=== PATIENT | female | born 1955 | race Caucasian/White ===

== ENCOUNTER 2018-02-04 09:02 | Inpatient (IN) | payer MEDICARE, OTHER ==
[~2018-02-04] VITALS: Ht 157.5 cm; Wt 52.0 kg
[~2018-02-04 09:02] MED LIST: ALBU90I INH; ALBU90OI6 INH; AMOX875 PO; Bactrim Ds Tab1 EACH PO; CLIN300; CYCL10 PO; FLUSAL1005 IH; HYDSUL200 PO; LORA1 PO; MAGIC MOUTHWASH; MULVITMINE PO; NAPR500 PO; Norco 5-325 Ta1 EACH PO; OXYACE5T PO; OXYACE7.5T PO; OXYC10ER PO; OXYC10TA19 PO; PREG25 PO; Percocet 5-3251 EACH PO; SOLI5 PO; SULTRIDS PO; TRAM50 PO; Ventolin Soln3 ML; Zovirax800 MG PO
[2018-02-04 10:43] LABS: Source, Urine Clean Catch
[2018-02-04 10:58] LABS: BASOPHILS ABSOLUTE AUTO 0.05 K/mm3 (0.00-0.23); BASOPHILS PERCENT AUTO 0 % (0-2); EOSINOPHILS ABSOLUTE AUTO 0.06 K/mm3 (0.00-0.68); EOSINOPHILS PERCENT AUTO 0 % (0-6); Hematocrit 40.7 % (33.0-51.0); Hemoglobin 13.7 g/dL (11.5-16.0); IMMATURE GRAN ABSOLUTE AUTO 0.16 K/mm3 (0.00-0.10); IMMATURE GRAN PERCENT AUTO 1 % (0-1); LYMPHOCYTES ABSOLUTE AUTO 0.85 K/mm3 (0.84-5.20); LYMPHOCYTES PERCENT AUTO 4 % (21-46); MONOCYTES ABSOLUTE AUTO 0.77 K/mm3 (0.16-1.47); MONOCYTES PERCENT AUTO 3 % (4-13); Mean Corpuscular HGB 32.3 pg (26.0-34.0); Mean Corpuscular HGB Conc 33.7 g/dL (31.5-36.5); Mean Corpuscular Volume 96 fL (80-100); Mean Platelet Volume 10.9 fL (9.1-12.4); NEUTROPHILS ABSOLUTE AUTO 21.65 K/mm3 (1.96-9.15); NEUTROPHILS PERCENT AUTO 92 % (41-73); Platelet Count 325 K/mm3 (150-400); RDW Coefficient Variation 13.6 % (11.7-14.2); RDW Standard Deviation 48.1 fL (35.1-46.3); Red Blood Cell Count 4.24 M/mm3 (3.80-5.20); White Blood Cell Count 23.54 K/mm3 (4.00-11.30)
[2018-02-04 11:06] LABS: Appearance, Urine Bloody (Clear); Bilirubin, Urine Neg (Neg); Blood, Urine 5+ (Neg); Color, Urine Red (P-Yellow); Glucose Qualitative, Urine Neg (Neg); Ketones, Urine Neg (Neg); Leukocyte Esterase, Urine 3+ (Neg); Nitrite, Urine Neg (Neg); Protein, Urine 4+ (Neg); Urobilinogen, Urine 2+ (Normal); pH, Urine 6.5 (5.0-8.0)
[2018-02-04 11:07] LABS: Bacteria Many /hpf; Red Blood Cells, Urine TNTC /hpf (0-2); Squamous Epithelial Cells Not Seen /hpf (Few); White Blood Cells, Urine TNTC /hpf (0-5)
[2018-02-04 11:19] LABS: Calcium, Blood 8.3 mg/dL (8.5-10.1); Creatinine, Blood 1.41 mg/dL (0.40-1.00); Potassium, Blood 5.2 mmol/L (3.5-5.5)
[2018-02-04] MEDS ORDERED: NAPR500 PO (12:59)
[2018-02-04] MEDS ORDERED: AMIT10 PO (13:20)
[2018-02-04 18:30] LABS: Influenza A Negative (NEGATIVE); Influenza B Negative (NEGATIVE)
[2018-02-05 04:56] LABS: Hematocrit 31.4 % (33.0-51.0); Hemoglobin 10.6 g/dL (11.5-16.0); Mean Corpuscular HGB 32.1 pg (26.0-34.0); Mean Corpuscular HGB Conc 33.8 g/dL (31.5-36.5); Mean Corpuscular Volume 95 fL (80-100); Mean Platelet Volume 9.4 fL (9.1-12.4); Platelet Count 340 K/mm3 (150-400); RDW Coefficient Variation 13.5 % (11.7-14.2); RDW Standard Deviation 47.8 fL (35.1-46.3); White Blood Cell Count 21.81 K/mm3 (4.00-11.30)
[2018-02-05 05:11] LABS: Bun/Creatinine Ratio 19.6 (12.0-20.0); Calcium, Blood 7.4 mg/dL (8.5-10.1); Creatinine, Blood 1.58 mg/dL (0.40-1.00); Potassium, Blood 3.5 mmol/L (3.5-5.5)
[2018-02-05] MEDS ORDERED: OXYC10TA19 PO (09:00)
[2018-02-05] MEDS ORDERED: BUSP10 PO (09:03)
[2018-02-05] MEDS ORDERED: GABA300 PO (09:05)
[2018-02-05] MEDS ORDERED: SOLI5 (09:06)
[2018-02-05 13:38] LABS: Vancomycin, Trough 22.8 ug/mL (5.0-10.0)
[2018-02-06 05:26] LABS: Hematocrit 34.1 % (33.0-51.0); Hemoglobin 11.2 g/dL (11.5-16.0); Mean Corpuscular HGB 32.2 pg (26.0-34.0); Mean Corpuscular HGB Conc 32.8 g/dL (31.5-36.5); Mean Platelet Volume 9.2 fL (9.1-12.4); Platelet Count 387 K/mm3 (150-400); RDW Standard Deviation 49.9 fL (35.1-46.3); Red Blood Cell Count 3.48 M/mm3 (3.80-5.20)
[2018-02-06 05:39] LABS: Albumin, Blood 1.6 g/dL (3.4-5.0); Anion Gap 9 mmol/L (6-16); Blood Urea Nitrogen 27 mg/dL (8-24); Bun/Creatinine Ratio 20.9 (12.0-20.0); CO2, Blood 23 mmol/L (21-32); Chloride, Blood 106 mmol/L (98-108); Creatinine, Blood 1.29 mg/dL (0.40-1.00); Glomerular Filtration Rate 44 (60-); Glucose, Blood 87 mg/dL (70-99); Phosphorus, Blood 3.1 mg/dL (2.5-4.9); Sodium, Blood 138 mmol/L (136-145); Vancomycin, Random 13.6 ug/mL
[2018-02-06 05:49] LABS: Mean Corpuscular Volume 98 fL (80-100)
[2018-02-07 08:15] LABS: Bun/Creatinine Ratio 20.7 (12.0-20.0); Calcium, Blood 8.2 mg/dL (8.5-10.1); Creatinine, Blood 1.11 mg/dL (0.40-1.00); Potassium, Blood 4.5 mmol/L (3.5-5.5)
[2018-02-07 08:19] LABS: Vancomycin, Trough 15.1 ug/mL (5.0-10.0)
[2018-02-07] MEDS ORDERED: CEFU500T30 PO (11:23)
[2018-02-07] MEDS ORDERED: Acidophilus La100 GM PO (11:23)
== END 2018-02-07 13:08 | disposition home or self-care (01) | DRG 872 ==
LOC: ER 09:02 → MEDS 12:34
PROVIDERS: Emergency Medicine; Internal Medicine; Pharmacist
PROC: 3E0234Z Introduction of Serum, Toxoid and Vaccine into Muscle, Percutaneous Approach (ICD-10-PCS; principal; 2018-02-04)
DX: A41.51 Sepsis due to Escherichia coli [E. coli] (principal); N39.0 Urinary tract infection, site not specified; N17.9 Acute kidney failure, unspecified; E87.1 Hypo-osmolality and hyponatremia; R65.20 Severe sepsis without septic shock; G89.29 Other chronic pain; M54.9 Dorsalgia, unspecified; K59.00 Constipation, unspecified; F32.9 Major depressive disorder, single episode, unspecified; F41.9 Anxiety disorder, unspecified; J44.9 Chronic obstructive pulmonary disease, unspecified; R31.9 Hematuria, unspecified; F17.210 Nicotine dependence, cigarettes, uncomplicated; Z86.14 Personal history of Methicillin resistant Staphylococcus aureus infection; Z88.8 Allergy status to other drugs, medicaments and biological substances; Z79.1 Long term (current) use of non-steroidal anti-inflammatories (NSAID); Z23 Encounter for immunization
CPT/HCPCS: 36415; 76770; 80048; 80069; 80202; 81001; 82330; 83735; 85025; 85027; 87086; 87186; 87804; 90686; 96365; 96366; 96375; 99284-25; J0696; J1885; J2405; J3010; J3370; J7030

== ENCOUNTER 2019-06-08 14:38 | Emergency (ER) | payer MEDICARE, OTHER ==
[~2019-06-08] VITALS: Ht 152.4 cm; Wt 50.8 kg
[~2019-06-08 14:38] MED LIST changes: +AMIT10 PO; +Acidophilus La100 GM PO; +BUSP10 PO; +CEFU500T30 PO; +GABA300 PO; +SOLI5
[2019-06-08] MEDS ORDERED: CODE30 PO (17:25)
[2019-06-08] MEDS ORDERED: Naprelan375 MG PO (17:25)
== END 2019-06-08 17:31 | disposition home or self-care (01) ==
LOC: ER 14:38
DX: M25.552 Pain in left hip (principal); M25.532 Pain in left wrist; F17.210 Nicotine dependence, cigarettes, uncomplicated; Z88.8 Allergy status to other drugs, medicaments and biological substances; Z79.899 Other long term (current) drug therapy
CPT/HCPCS: 73110; 73502; 99283-25

== ENCOUNTER 2020-04-05 18:40 | Emergency (ER) | payer MEDICARE, OTHER ==
[~2020-04-05] VITALS: Ht 154.9 cm; Wt 54.4 kg
[~2020-04-05 18:40] MED LIST changes: +CODE30 PO; +Naprelan375 MG PO
[2020-04-05] MEDS ORDERED: SALM50IP (19:02)
[2020-04-05] MEDS ORDERED: ALBU2.5V5 (19:02)
[2020-04-05] MEDS ORDERED: Percocet 5-3251 EACH PO (19:45)
== END 2020-04-05 20:38 | disposition home or self-care (01) ==
LOC: ER 18:40
DX: S52.502A Unspecified fracture of the lower end of left radius, initial encounter for closed fracture (principal); J44.9 Chronic obstructive pulmonary disease, unspecified; F17.210 Nicotine dependence, cigarettes, uncomplicated; Z88.8 Allergy status to other drugs, medicaments and biological substances; Z79.899 Other long term (current) drug therapy; W01.0XXA Fall on same level from slipping, tripping and stumbling without subsequent striking against object, initial encounter
CPT/HCPCS: 29125; 73110; 99283-25; A9270; A9270-GY

== ENCOUNTER → 2020-07-14 | Outpatient (CLI) | payer MEDICARE, OTHER ==
[~2020-07-14] MED LIST changes: +ALBU2.5V5; +SALM50IP
[2020-07-15 07:42] LABS: Candida species (DNA Probe) Negative (NEGATIVE); G. vaginalis (DNA Probe) Negative (NEGATIVE); T. vaginalis (DNA Probe) Negative (NEGATIVE)
[2020-07-16 05:11] LABS: CHLAMYDIA TRACHOMATIS, NAA Negative (Negative); HPV 16 Negative (Negative); HPV 18 Negative (Negative); HPV OTHER HR TYPES Negative (Negative)
== END ==
LOC: LAB SRC 13:55 → LAB SHORT 13:55
PROVIDERS: Nurse Practitioner Family
DX: Z01.419 Encounter for gynecological examination (general) (routine) without abnormal findings (principal); Z72.51 High risk heterosexual behavior
CPT/HCPCS: 87480; 87491; 87510; 87591; 87624; 87660; G0123

== ENCOUNTER → 2021-04-29 | Outpatient (CLI) | payer OTHER | END | disposition home or self-care (01) | LOC: LAB SHORT 17:56 | DX: N39.0 Urinary tract infection, site not specified (principal) | CPT/HCPCS: 87077; 87086; 87186 ==

== ENCOUNTER 2021-09-14 23:01 | Inpatient (IN) | payer OTHER ==
[~2021-09-14] VITALS: Ht 157.5 cm; Wt 50.4 kg
[2021-09-15 00:13] LABS: BASOPHILS ABSOLUTE AUTO 0.06 K/mm3 (0.00-0.23); BASOPHILS PERCENT AUTO 0 % (0-2); EOSINOPHILS PERCENT AUTO 0 % (0-6); Hemoglobin 15.8 g/dL (11.5-16.0); IMMATURE GRAN ABSOLUTE AUTO 0.04 K/mm3 (0.00-0.10); IMMATURE GRAN PERCENT AUTO 0 % (0-1); LYMPHOCYTES ABSOLUTE AUTO 2.12 K/mm3 (0.84-5.20); LYMPHOCYTES PERCENT AUTO 16 % (21-46); MONOCYTES ABSOLUTE AUTO 1.47 K/mm3 (0.16-1.47); MONOCYTES PERCENT AUTO 11 % (4-13); Mean Corpuscular HGB 31.5 pg (26.0-34.0); Mean Corpuscular HGB Conc 32.9 g/dL (31.5-36.5); Mean Corpuscular Volume 96 fL (80-100); Mean Platelet Volume 9.3 fL (9.1-12.4); NEUTROPHILS ABSOLUTE AUTO 9.96 K/mm3 (1.96-9.15); NEUTROPHILS PERCENT AUTO 73 % (41-73); Platelet Count 360 K/mm3 (150-400); RDW Coefficient Variation 13.8 % (11.7-14.2); RDW Standard Deviation 48.7 fL (35.1-46.3); Red Blood Cell Count 5.01 M/mm3 (3.80-5.20); White Blood Cell Count 13.65 K/mm3 (4.00-11.30)
[2021-09-15 00:29] LABS: Alanine Aminotransfer (ALT/SGP 35 U/L (12-78); Albumin, Blood 3.5 g/dL (3.4-5.0); Albumin/Globulin Ratio 0.7 (0.8-1.8); Alk Phos 150 U/L (50-136); Anion Gap 11 mmol/L (6-16); Aspartate Aminotrans (AST/SGOT 48 U/L (12-37); Bilirubin, Total 0.5 mg/dL (0.1-1.0); Blood Urea Nitrogen 15 mg/dL (8-24); Bun/Creatinine Ratio 26.1 (12.0-20.0); CO2, Blood 23 mmol/L (21-32); Calcium, Blood 9.2 mg/dL (8.5-10.1); Chloride, Blood 103 mmol/L (98-108); Creatinine, Blood 0.58 mg/dL (0.40-1.00); Globulin, Blood 5.1 g/dL (2.2-4.0); Glomerular Filtration Rate >60 (60-); Glucose, Blood 155 mg/dL (70-99); Magnesium, Blood 2.3 mg/dL (1.6-2.4); Potassium, Blood 3.4 mmol/L (3.5-5.5); Sodium, Blood 137 mmol/L (136-145); Total Protein, Blood 8.6 g/dL (6.4-8.2)
[2021-09-15 01:19] LABS: Influenza A, PCR NEGATIVE (NEGATIVE); Influenza B, PCR NEGATIVE (NEGATIVE); Resp Syncytial Virus, PCR NEGATIVE (NEGATIVE); SARS-Cov-2 (COVID-19) PCR, MMC NEGATIVE (NEGATIVE)
[2021-09-15 01:48] LABS: Source, Urine Clean Catch
[2021-09-15 01:56] LABS: Bilirubin, Urine Neg (Neg); Blood, Urine 4+ (Neg); Color, Urine Yellow (P-Yellow); Glucose Qualitative, Urine Neg (Neg); Ketones, Urine 1+ (Neg); Leukocyte Esterase, Urine 2+ (Neg); Nitrite, Urine Neg (Neg); Protein, Urine 2+ (Neg); Urobilinogen, Urine 1+ (Normal)
[2021-09-15 01:57] LABS: Appearance, Urine Hazy (Clear)
[2021-09-15 02:06] LABS: Bacteria Many /hpf; Squamous Epithelial Cells Few /hpf (Few); White Blood Cells, Urine 25-50 /hpf (0-5)
[2021-09-15 08:24] LABS: BASOPHILS ABSOLUTE AUTO 0.04 K/mm3 (0.00-0.23); BASOPHILS PERCENT AUTO 0 % (0-2); EOSINOPHILS ABSOLUTE AUTO 0.04 K/mm3 (0.00-0.68); EOSINOPHILS PERCENT AUTO 0 % (0-6); Hematocrit 39.7 % (33.0-51.0); Hemoglobin 12.7 g/dL (11.5-16.0); IMMATURE GRAN ABSOLUTE AUTO 0.02 K/mm3 (0.00-0.10); IMMATURE GRAN PERCENT AUTO 0 % (0-1); LYMPHOCYTES ABSOLUTE AUTO 2.01 K/mm3 (0.84-5.20); LYMPHOCYTES PERCENT AUTO 20 % (21-46); MONOCYTES ABSOLUTE AUTO 1.32 K/mm3 (0.16-1.47); MONOCYTES PERCENT AUTO 13 % (4-13); Mean Corpuscular HGB 31.4 pg (26.0-34.0); Mean Corpuscular Volume 98 fL (80-100); Mean Platelet Volume 8.7 fL (9.1-12.4); NEUTROPHILS ABSOLUTE AUTO 6.43 K/mm3 (1.96-9.15); NEUTROPHILS PERCENT AUTO 65 % (41-73); Platelet Count 290 K/mm3 (150-400); RDW Coefficient Variation 13.9 % (11.7-14.2); RDW Standard Deviation 50.4 fL (35.1-46.3); Red Blood Cell Count 4.04 M/mm3 (3.80-5.20); White Blood Cell Count 9.86 K/mm3 (4.00-11.30)
[2021-09-15 08:41] LABS: Alanine Aminotransfer (ALT/SGP 28 U/L (12-78); Albumin, Blood 2.6 g/dL (3.4-5.0); Albumin/Globulin Ratio 0.7 (0.8-1.8); Alk Phos 107 U/L (50-136); Anion Gap 6 mmol/L (6-16); Aspartate Aminotrans (AST/SGOT 30 U/L (12-37); Bilirubin, Total 0.3 mg/dL (0.1-1.0); Blood Urea Nitrogen 12 mg/dL (8-24); Bun/Creatinine Ratio 25.9 (12.0-20.0); CO2, Blood 24 mmol/L (21-32); Calcium, Blood 7.6 mg/dL (8.5-10.1); Chloride, Blood 111 mmol/L (98-108); Creatinine, Blood 0.46 mg/dL (0.40-1.00); Globulin, Blood 3.8 g/dL (2.2-4.0); Glomerular Filtration Rate >60 (60-); Glucose, Blood 78 mg/dL (70-99); Potassium, Blood 3.3 mmol/L (3.5-5.5); Sodium, Blood 141 mmol/L (136-145)
[2021-09-15 08:44] LABS: Total Protein, Blood 6.4 g/dL (6.4-8.2)
--- NOTE | 2021-09-15 17:44 | NUR ---
Shift Summary Pt remains alert. VSS. Afebrile. C/o generalized body pain- Oxycodone x1. AUO. No BM. Tolerating current diet. Remains on 2LNC- RICE improving. Frequent rounds to ensure pt safety. Pt in no apparent distress at this time. Will continue to monitor until transfer of care to oncoming RN.
--- NOTE | 2021-09-15 21:56 | NUR ---
TRANSFER OF CARE: GAVE REPORT TO LIANG GONZALES RN AT 2130. PATIENT WAS TRANSFERRED BY W/C TO [place] [id number].
[2021-09-16 03:32] LABS: Anion Gap 5 mmol/L (6-16); Blood Urea Nitrogen 14 mg/dL (8-24); Bun/Creatinine Ratio 33.5 (12.0-20.0); CO2, Blood 27 mmol/L (21-32); Calcium, Blood 8.4 mg/dL (8.5-10.1); Chloride, Blood 109 mmol/L (98-108); Creatinine, Blood 0.42 mg/dL (0.40-1.00); Glomerular Filtration Rate >60 (60-); Glucose, Blood 193 mg/dL (70-99); Potassium, Blood 3.5 mmol/L (3.5-5.5); Sodium, Blood 141 mmol/L (136-145); Vancomycin, Trough 6.7 ug/mL (5.0-10.0)
--- NOTE | 2021-09-16 05:16 | NUR ---
[facility] DEPARTMENT CHIEF SUMMARY PT XFER F/PCU. PT ADMIT F/SEPSIS RELATED TO RESPIRATORY INFECTION. HX OF SOB/COPD. PT ON 2L O2 W/NC. PT HAS CONSISTANT PRODUCTIVE COUGH. WHITE/YELLOW SPUTUM. LUNG SOUNDS COARSE/CRACKLES AND EXP WHEEZE. PT SOB W/ACTIVITY. PT REPORTS FEELING BETTER AND HOPES TO GO HOME TOMORROW. PT USES WALKER TO AMBULATE AND IS A 1 PERSON ASSIST OUT OF BED. PT A/OX 4. PT ASKED FOR MULTIPLE SNACKS AND REPORTS HER APPETITE HAS INCREASED.
--- NOTE | 2021-09-16 19:29 | NUR ---
SHIFT SUMMARY PT AWAKE AT START OF SHIFT, COUGHING INTERMITTENTLY. PT REPORTED THAT SHE IS A SMOKER; NICOTINE PATCH PLACED TO JIMI. IV ABX'S GIVEN PER EMAR. DR YE IN TO SEE PT THIS AM. PT WANTING TO GO HOME, BUT NEEDING TO STAY AT LEAST ANOTHER DAY. COUGH MED ORDERED AND GIVEN. PT UP TO RECLINER CHAIR AT BS FOR MOST OF THE DAY. CALLS FOR ASSIST TO [facility]. BECOMES VERY AGITATED AT TIMES WHEN SHE GETS ENTANGLED IN LINES OR CAN'T GET THE CHAIR TO MOVE SHE WOULD LIKE IT TO, AND ESPECIALLY AGITATED WHEN TRYING TO USE HER CELL PHONE. LUNGS T/O DIMINISHED WITH EXP WHEEZES. ABX'S CHANGED THIS EVENING; SEE CHART. MEDICATED FOR C/O PAIN TO BACK, PER EMAR AND PT REQUEST. SITTING QUIETLY IN RECLINER WATCHING TV AT THIS TIME. CALL LT IN REACH.
--- NOTE | 2021-09-17 06:09 | NUR ---
SHIFT SUMMARY PATIENT ALERT AND ORIENTED X3. MEDICATED PER EMAR FOR PAIN AND COUGH. IS COMPLAINING OF CONSTIPATION. NO ACUTE ISSUES NOTED OVERNIGHT. CALL LIGHT WITHIN REACH. REPORT GIVEN TO ONCOMING RN.
--- NOTE | 2021-09-17 08:16 | NUR ---
pt laying in bed awake a/ox3, pleasant and cooperative with care, follows commands well, denies pain, states she had a bad night last night, lungs are dim tight with exp wheezing t/o, resp even and unlabored at rest, becomes labored with activity, reports occ nonproductive cough, currently on 4 liters 02 via n/c, hrr, no edema noted, ppp+1, cap refill <3sec, vs stable, afebrile, iv sites are clear and patent, to lac and rhand, btx4, abd round soft nontender, is complaining of constipation, voids without diff, skin frail but c/w/d, maew, uses a front wheeled walker to ambulate, bola, call light in reach.
[2021-09-17 14:43] LABS: BASOPHILS ABSOLUTE AUTO 0.03 K/mm3 (0.00-0.23); BASOPHILS PERCENT AUTO 0 % (0-2); EOSINOPHILS PERCENT AUTO 0 % (0-6); Hemoglobin 14.9 g/dL (11.5-16.0); IMMATURE GRAN ABSOLUTE AUTO 0.13 K/mm3 (0.00-0.10); IMMATURE GRAN PERCENT AUTO 1 % (0-1); LYMPHOCYTES ABSOLUTE AUTO 0.91 K/mm3 (0.84-5.20); LYMPHOCYTES PERCENT AUTO 6 % (21-46); MONOCYTES ABSOLUTE AUTO 0.65 K/mm3 (0.16-1.47); MONOCYTES PERCENT AUTO 4 % (4-13); Mean Corpuscular HGB 31.9 pg (26.0-34.0); Mean Corpuscular HGB Conc 31.7 g/dL (31.5-36.5); Mean Corpuscular Volume 101 fL (80-100); Mean Platelet Volume 9.1 fL (9.1-12.4); NEUTROPHILS ABSOLUTE AUTO 13.15 K/mm3 (1.96-9.15); NEUTROPHILS PERCENT AUTO 88 % (41-73); Platelet Count 375 K/mm3 (150-400); RDW Coefficient Variation 13.8 % (11.7-14.2); RDW Standard Deviation 50.3 fL (35.1-46.3); Red Blood Cell Count 4.67 M/mm3 (3.80-5.20); White Blood Cell Count 14.87 K/mm3 (4.00-11.30)
[2021-09-17 14:58] LABS: Anion Gap 8 mmol/L (6-16); Blood Urea Nitrogen 13 mg/dL (8-24); Bun/Creatinine Ratio 25.6 (12.0-20.0); CO2, Blood 28 mmol/L (21-32); Calcium, Blood 9.2 mg/dL (8.5-10.1); Chloride, Blood 105 mmol/L (98-108); Creatinine, Blood 0.51 mg/dL (0.40-1.00); Glomerular Filtration Rate >60 (60-); Glucose, Blood 135 mg/dL (70-99); Potassium, Blood 3.9 mmol/L (3.5-5.5); Sodium, Blood 141 mmol/L (136-145)
--- NOTE | 2021-09-17 18:20 | NUR ---
pt sat up in chair all day, linen changed, having shower at this time with help, have medicated for pain once, no further changes. call light in reach.
--- NOTE | 2021-09-18 06:29 | NUR ---
SHIFT SUMMARY PATIENT ALERT AND ORIENTED. MEDICATED PER EMAR FOR PAIN AND COUGH. PATIENT HAD SEVERAL LARGE LOOSE BOWEL MOVEMENTS OVERNIGHT, HELD MORNING DOSE OF LACTULOSE A RESULT. CALL LIGHT WITHIN REACH. REPORT GIVEN TO ONCOMING RN.
[2021-09-18] MEDS ORDERED: IPRAT-ALBUT 0.5-3 ML INH (15:24)
[2021-09-18] MEDS ORDERED: LEVFLO500 PO (15:25)
[2021-09-18] MEDS ORDERED: Nicoderm Cq1 EACH TOP (15:26)
[2021-09-18] MEDS ORDERED: MIRALAX17 GM PO (15:27)
[2021-09-18] MEDS ORDERED: PRED20 PO (15:28)
[2021-09-18] MEDS ORDERED: VISBIOME 112.51 EACH PO (15:29)
--- NOTE | 2021-09-18 17:20 | NUR ---
DISCHARGE NOTE PATIENT WAS DISCHARGED VIA WHEELCHAIR WITH [facility] AT 1650 THIS SHIFT. APRIL HARRY TOOK THE PATIENT OUT TO THEIR CAR. PATIENT TOOK BELONGINGS WITH THEM AT DISCHARGE. MEDICATIONS FAXED TO [facility]. THE PATIENT VERBALIZED UNDERSTANDING OF DISHCHARGE INSTRUCTIONS GIVEN. IV DC'D BEFORE DISCHARGING THE PATIENT. THE PATIENT WAS EDUCATED ON THE USE OF AT HOME NEBULIZER TREATMENT. PATIENT HAS OXYGEN ALREADY SET UP AT HOME. VSS. NO DISTRESS NOTED AT DISCHARGE. NOTHING FURTHER TO REPORT.
== END 2021-09-18 16:50 | disposition home or self-care (01) | DRG 871 ==
LOC: ER 23:01 → ERHOLD 09-15 02:32 → PCU 09-15 09:49 → MEDS 09-15 21:35
PROVIDERS: Family Medicine; Internal Medicine; Student in an Organized Health Care Education/Training Program; ADMIT Internal Medicine
DX: A41.02 Sepsis due to Methicillin resistant Staphylococcus aureus (principal); J18.9 Pneumonia, unspecified organism; J96.21 Acute and chronic respiratory failure with hypoxia; J44.0 Chronic obstructive pulmonary disease with (acute) lower respiratory infection; N39.0 Urinary tract infection, site not specified; J44.1 Chronic obstructive pulmonary disease with (acute) exacerbation; R65.20 Severe sepsis without septic shock; G89.29 Other chronic pain; M54.9 Dorsalgia, unspecified; Z20.822 Contact with and (suspected) exposure to COVID-19; F32.A Depression, unspecified; K59.00 Constipation, unspecified; B95.2 Enterococcus as the cause of diseases classified elsewhere; R05.3 Chronic cough; J98.01 Acute bronchospasm; D72.829 Elevated white blood cell count, unspecified; E87.6 Hypokalemia; F17.210 Nicotine dependence, cigarettes, uncomplicated; F41.9 Anxiety disorder, unspecified; Z99.81 Dependence on supplemental oxygen; Z71.6 Tobacco abuse counseling; Z96.641 Presence of right artificial hip joint; Z86.14 Personal history of Methicillin resistant Staphylococcus aureus infection; Z98.890 Other specified postprocedural states; Z90.89 Acquired absence of other organs; Z88.1 Allergy status to other antibiotic agents; Z79.899 Other long term (current) drug therapy
CPT/HCPCS: 0241U; 36415; 51701; 71045; 80048; 80053; 80202; 81001; 83605; 83735; 84145; 85025; 87040; 87070; 87077; 87086; 87186; 87205; 93005; 93010; 94640; 94664; 94760; 94762; 96365; 96366; 96375; 97110; 97116; 97162; 97166; 97530; 97535; 99285-25; A9270; J0456; J0696; J1650; J1885; J2185; J2930; J3370; J7030; J7040; J7060; J7512

== ENCOUNTER → 2021-09-29 | Emergency (ER) | payer OTHER ==
[~2021-09-29] VITALS: Ht 154.9 cm; Wt 50.4 kg
[~2021-09-29] MED LIST changes: +IPRAT-ALBUT 0.5-3 ML INH; +LEVFLO500 PO; +MIRALAX17 GM PO; +Nicoderm Cq1 EACH TOP; +PRED20 PO; +VISBIOME 112.51 EACH PO
== END ==
LOC: ER 11:32
DX: K62.3 Rectal prolapse (principal); J44.9 Chronic obstructive pulmonary disease, unspecified; F17.210 Nicotine dependence, cigarettes, uncomplicated; Z79.899 Other long term (current) drug therapy; Z96.641 Presence of right artificial hip joint
CPT/HCPCS: J1170; J1885; J2405